=== PATIENT | male | born 1945 | race Caucasian/White ===

== ENCOUNTER 2019-03-15 18:29 | Emergency (ER) | payer MEDICARE ==
[~2019-03-15] VITALS: Ht 177.8 cm; Wt 84.1 kg
[~2019-03-15 18:29] MED LIST: ASPI-12 PO
[2019-03-15 21:00] VITALS: BP 145/67
== END 2019-03-15 20:47 | disposition home or self-care (01) ==
LOC: ER 18:29
DX: H61.22 Impacted cerumen, left ear (principal); I48.91 Unspecified atrial fibrillation; E78.00 Pure hypercholesterolemia, unspecified; I10 Essential (primary) hypertension; F17.200 Nicotine dependence, unspecified, uncomplicated; Z79.82 Long term (current) use of aspirin; Z86.73 Personal history of transient ischemic attack (TIA), and cerebral infarction without residual deficits
CPT/HCPCS: 69209; 99283

== ENCOUNTER 2020-07-07 13:39 | Emergency (ER) | payer MEDICARE ==
[~2020-07-07] VITALS: Ht 172.7 cm; Wt 81.8 kg
[2020-07-07 13:58] VITALS: BP 146/67
--- NOTE | 2020-07-07 14:14 | NUR ---
DISCUSSED PT CASE WITH DR. AVELAR, RECEIVED VO FOR 2 VIEW CX-RAY
[2020-07-07] MEDS ORDERED: HYDROcodone/acetaminophen 5mg/325mg tablet PO ONE (15:50)
[2020-07-07] MEDS ORDERED: HYDR-3965 PO (16:23)
== END 2020-07-07 16:55 | disposition home or self-care (01) ==
LOC: ER 13:40
DX: S22.31XA Fracture of one rib, right side, initial encounter for closed fracture (principal); R07.81 Pleurodynia; I48.91 Unspecified atrial fibrillation; E78.00 Pure hypercholesterolemia, unspecified; I10 Essential (primary) hypertension; Z86.73 Personal history of transient ischemic attack (TIA), and cerebral infarction without residual deficits; Z72.89 Other problems related to lifestyle; Z60.2 Problems related to living alone; Z79.82 Long term (current) use of aspirin; Z79.899 Other long term (current) drug therapy; W19.XXXA Unspecified fall, initial encounter; Y93.89 Activity, other specified; Y92.89 Other specified places as the place of occurrence of the external cause; Y99.8 Other external cause status
CPT/HCPCS: 71046; 76882; 99284